=== PATIENT | female | born 1940 | race Caucasian/White ===

== ENCOUNTER → 2017-07-20 | Outpatient (CLI) | payer BC ==
[~2017-07-20] MED LIST: ACET325 PO; ALKA-SELTZER H1 EACH PO; ASPI325 PO; CARV3.125 PO; CHOL10002 PO; CYAN100 PO; CYCL10 PO; Colace100 MG PO; DULO30 PO; DULO60 PO; ESOM20 PO; FLUZONE HI180 MCG/04 IM; GABA100 PO; HYDACE5 PO; HYDR1TAB94 PO; Multiple Vitam1 EAC1 PO; NEXIUM PO; Norco 5-325 Ta1 EACH PO; ONDA4 PO; ONDA4ODT MM; OXYACE5T PO; OXYC1L PO; POTCHL10ER PO; PREG150 PO; PREG25 PO; PROM25S PO; Percocet 5-3251 EACH PO; QUIN5 PO; RANI150 PO; TRAM50 PO; Vitamin D400 UNI1 PO; Zofran Odt4 MG SL; Zofran8 MG PO
[2017-07-20 17:35] LABS: Bilirubin, Urine Neg (Neg); Blood, Urine Neg (Neg); Glucose Qualitative, Urine Neg (Neg); Ketones, Urine Neg (Neg); Leukocyte Esterase, Urine Neg (Neg); Nitrite, Urine Neg (Neg); Protein, Urine Neg (Neg); Urobilinogen, Urine NORM (Normal)
[2017-07-20 17:45] LABS: Appearance, Urine Clear (Clear); Color, Urine Yellow (P-Yellow)
== END | disposition home or self-care (01) ==
LOC: LAB 12:33
DX: R30.0 Dysuria (principal)
CPT/HCPCS: 81003

== ENCOUNTER 2017-12-01 12:38 | Emergency (ER) | payer BC ==
[~2017-12-01] VITALS: Ht 167.6 cm; Wt 74.8 kg
[~2017-12-01 12:38] MED LIST changes: -Colace100 MG PO; -POTCHL10ER PO
[2017-12-01] MEDS ORDERED: POTCHL10ER PO (13:20)
[2017-12-01 13:49] LABS: Source, Urine Clean Catch
[2017-12-01 14:05] LABS: Bilirubin, Urine Neg (Neg); Blood, Urine Neg (Neg); Glucose Qualitative, Urine Neg (Neg); Ketones, Urine Neg (Neg); Leukocyte Esterase, Urine 2+ (Neg); Nitrite, Urine Neg (Neg); Protein, Urine Neg (Neg); Specific Gravity, Urine 1.015 (1.003-1.022); Urobilinogen, Urine NORM (Normal); pH, Urine 6.5 (5.0-8.0)
[2017-12-01 14:14] LABS: Appearance, Urine Hazy (Clear); Color, Urine Yellow (P-Yellow)
[2017-12-01 14:18] LABS: Bacteria Few /hpf; Red Blood Cells, Urine Not Seen /hpf (0-2); Squamous Epithelial Cells Mod /hpf (Few)
[2017-12-01] MEDS ORDERED: Percocet 5-3251 EACH PO (17:12)
[2017-12-01] MEDS ORDERED: Colace100 MG PO (17:12)
== END 2017-12-01 17:25 | disposition home or self-care (01) ==
LOC: ER 12:38
PROVIDERS: Physician Assistant
DX: S32.059A Unspecified fracture of fifth lumbar vertebra, initial encounter for closed fracture (principal); X50.0XXA Overexertion from strenuous movement or load, initial encounter; Z88.5 Allergy status to narcotic agent; Z79.899 Other long term (current) drug therapy; K21.9 Gastro-esophageal reflux disease without esophagitis; I10 Essential (primary) hypertension; Z87.891 Personal history of nicotine dependence
CPT/HCPCS: 72100; 72148; 81001; 87086; 99284

== ENCOUNTER 2018-10-24 11:48 | Emergency (ER) | payer BC ==
[~2018-10-24] VITALS: Ht 142.2 cm; Wt 61.2 kg
[~2018-10-24 11:48] MED LIST changes: +Colace100 MG PO; +POTCHL10ER PO
[2018-10-24 13:21] LABS: Alanine Aminotransfer (ALT/SGP 18 U/L (12-78); Albumin, Blood 4.1 g/dL (3.4-5.0); Alk Phos 70 U/L (50-136); Anion Gap 7 mmol/L (6-16); Aspartate Aminotrans (AST/SGOT 17 U/L (12-37); Bilirubin, Total 0.7 mg/dL (0.1-1.0); Blood Urea Nitrogen 13 mg/dL (8-24); Bun/Creatinine Ratio 19.9 (12.0-20.0); CO2, Blood 28 mmol/L (21-32); Calcium, Blood 9.3 mg/dL (8.5-10.1); Chloride, Blood 102 mmol/L (98-108); Creatinine, Blood 0.65 mg/dL (0.40-1.00); Glomerular Filtration Rate >60 (60-); Glucose, Blood 103 mg/dL (70-99); Potassium, Blood 3.8 mmol/L (3.5-5.5); Sodium, Blood 137 mmol/L (136-145); Total Protein, Blood 8.1 g/dL (6.4-8.2)
[2018-10-24 14:23] LABS: BASOPHILS ABSOLUTE AUTO 0.03 K/mm3 (0.00-0.23); BASOPHILS PERCENT AUTO 0 % (0-2); EOSINOPHILS ABSOLUTE AUTO 0.02 K/mm3 (0.00-0.68); EOSINOPHILS PERCENT AUTO 0 % (0-6); Hematocrit 41.3 % (33.0-51.0); Hemoglobin 13.4 g/dL (11.5-16.0); IMMATURE GRAN ABSOLUTE AUTO 0.07 K/mm3 (0.00-0.10); IMMATURE GRAN PERCENT AUTO 1 % (0-1); LYMPHOCYTES ABSOLUTE AUTO 1.05 K/mm3 (0.84-5.20); LYMPHOCYTES PERCENT AUTO 12 % (21-46); MONOCYTES ABSOLUTE AUTO 0.55 K/mm3 (0.16-1.47); MONOCYTES PERCENT AUTO 6 % (4-13); Mean Corpuscular HGB 31.2 pg (26.0-34.0); Mean Corpuscular HGB Conc 32.4 g/dL (31.5-36.5); Mean Corpuscular Volume 96 fL (80-100); Mean Platelet Volume 9.9 fL (9.1-12.4); NEUTROPHILS ABSOLUTE AUTO 7.45 K/mm3 (1.96-9.15); NEUTROPHILS PERCENT AUTO 81 % (41-73); Platelet Count 265 K/mm3 (150-400); RDW Coefficient Variation 13.4 % (11.7-14.2); RDW Standard Deviation 48.1 fL (35.1-46.3); Red Blood Cell Count 4.29 M/mm3 (3.80-5.20); White Blood Cell Count 9.17 K/mm3 (4.00-11.30)
== END 2018-10-24 14:42 | disposition home or self-care (01) ==
LOC: ER 11:48
PROVIDERS: Physician Assistant
DX: S60.011A Contusion of right thumb without damage to nail, initial encounter (principal); R55 Syncope and collapse; I10 Essential (primary) hypertension; K21.9 Gastro-esophageal reflux disease without esophagitis; Z87.891 Personal history of nicotine dependence; X58.XXXA Exposure to other specified factors, initial encounter
CPT/HCPCS: 36415; 73130; 80053; 85025; 93005; 93010; 99284-25

== ENCOUNTER 2019-07-04 11:18 | Emergency (ER) | payer BC ==
[~2019-07-04] VITALS: Ht 147.3 cm; Wt 63.5 kg
[2019-07-04] MEDS ORDERED: Ativan0.5 MG PO (15:53)
== END 2019-07-04 16:21 | disposition home or self-care (01) ==
LOC: ER 11:18
DX: R51 Headache (principal); F43.9 Reaction to severe stress, unspecified; I10 Essential (primary) hypertension; K21.9 Gastro-esophageal reflux disease without esophagitis; Z88.5 Allergy status to narcotic agent; Z87.891 Personal history of nicotine dependence
CPT/HCPCS: 70450; 72125; 96372; 99284-25; J1200; J1885; J2765

== ENCOUNTER 2021-01-09 13:02 | Inpatient (IN) | payer MEDICARE, BC ==
[~2021-01-09] VITALS: Ht 157.5 cm; Wt 50.5 kg
[~2021-01-09 13:02] MED LIST changes: +Ativan0.5 MG PO
[2021-01-09 13:35] LABS: BASOPHILS ABSOLUTE AUTO 0.03 K/mm3 (0.00-0.23); BASOPHILS PERCENT AUTO 0 % (0-2); EOSINOPHILS PERCENT AUTO 0 % (0-6); Hematocrit 38.6 % (33.0-51.0); Hemoglobin 12.7 g/dL (11.5-16.0); IMMATURE GRAN ABSOLUTE AUTO 0.03 K/mm3 (0.00-0.10); IMMATURE GRAN PERCENT AUTO 0 % (0-1); LYMPHOCYTES PERCENT AUTO 10 % (21-46); MONOCYTES ABSOLUTE AUTO 0.66 K/mm3 (0.16-1.47); MONOCYTES PERCENT AUTO 7 % (4-13); Mean Corpuscular HGB 32.2 pg (26.0-34.0); Mean Corpuscular HGB Conc 32.9 g/dL (31.5-36.5); Mean Corpuscular Volume 98 fL (80-100); Mean Platelet Volume 9.5 fL (9.1-12.4); NEUTROPHILS ABSOLUTE AUTO 7.46 K/mm3 (1.96-9.15); NEUTROPHILS PERCENT AUTO 82 % (41-73); Platelet Count 263 K/mm3 (150-400); RDW Standard Deviation 46.7 fL (35.1-46.3); Red Blood Cell Count 3.95 M/mm3 (3.80-5.20); White Blood Cell Count 9.08 K/mm3 (4.00-11.30)
[2021-01-09 13:46] LABS: Alanine Aminotransfer (ALT/SGP 12 U/L (12-78); Albumin, Blood 3.4 g/dL (3.4-5.0); Albumin/Globulin Ratio 0.9 (0.8-1.8); Alk Phos 85 U/L (50-136); Anion Gap 3 mmol/L (6-16); Aspartate Aminotrans (AST/SGOT 14 U/L (12-37); Bilirubin, Total 0.3 mg/dL (0.1-1.0); Blood Urea Nitrogen 11 mg/dL (8-24); Bun/Creatinine Ratio 20.3 (12.0-20.0); CO2, Blood 29 mmol/L (21-32); Calcium, Blood 8.9 mg/dL (8.5-10.1); Chloride, Blood 104 mmol/L (98-108); Creatinine, Blood 0.54 mg/dL (0.40-1.00); Globulin, Blood 3.6 g/dL (2.2-4.0); Glomerular Filtration Rate >60 (60-); Glucose, Blood 130 mg/dL (70-99); Potassium, Blood 3.7 mmol/L (3.5-5.5); Sodium, Blood 136 mmol/L (136-145); Troponin I <0.015 ng/mL (0.000-0.040)
[2021-01-09 14:47] LABS: Magnesium, Blood 2.1 mg/dL (1.6-2.4); Phosphorus, Blood 2.8 mg/dL (2.5-4.9)
[2021-01-09] MEDS ORDERED: LORAZEPAM0.5 MG PO (16:29)
--- NOTE | 2021-01-09 20:00 | NUR ---
PT ADMITTED TO ROOM ICU 10 FROM [facility] [place] SECONDARY TO HAVING TRANSVENOUS PACER PLACEMENT. ACCESS RIGHT SIDE. PT TO ROOM AT 1915. PT VERY ANXIOUS AND CONFUSED. PT VERY [place]. PT'S HYPERTENSIVE AND HEART RATE TACHYCARDIA. DR CHAVEZ IN TO SEE PT. MEETS WITH PT'S DAUGHTER. IN DISCUSSION OF HAVING PACER PLACE SUB MUSCLE AND THAT EFFORTS TO FIND POSSIBLE HOSPITAL THAT IS ABLE TO PERFORM THIS PROCEDURE. WILL REVIEW CHART AND PLAN OF CARE FOR THIS PT.
[2021-01-09 21:47] LABS: Source, Urine Clean Catch
[2021-01-09 21:48] LABS: Troponin I 0.239 ng/mL (0.000-0.040)
[2021-01-09 21:52] LABS: Bilirubin, Urine Neg (Neg); Blood, Urine 1+ (Neg); Glucose Qualitative, Urine Neg (Neg); Ketones, Urine Neg (Neg); Leukocyte Esterase, Urine 1+ (Neg); Nitrite, Urine Neg (Neg); Protein, Urine Neg (Neg); Urobilinogen, Urine NORM (Normal)
[2021-01-09 22:09] LABS: Appearance, Urine Hazy (Clear); Color, Urine Yellow (P-Yellow)
[2021-01-09 22:10] LABS: Bacteria Many /hpf; Red Blood Cells, Urine 0-2 /hpf (0-2); Squamous Epithelial Cells Many /hpf (Few)
--- NOTE | 2021-01-09 23:00 | NUR ---
LEE CATHETER PLACED WITH TEMP PROBE FEATURE. UA SENT TO LAB. PT NEEDS TO BE REMINDED WHERE SHE IS AT THIS TIME. WILL ATTEMPT TO PULL AT LINES. TRANSVENOUS PACER HAS NOT BEEN IN USE SECONDARY TO HEART RATE REMAINING ABOVE THERSHOLD.
--- NOTE | 2021-01-10 02:00 | NUR ---
PT REQUIRED PLACEMENT OF [facility] SECONDARY TO CONSTANT ATTEMPTS TO GET OUT OF BED. PT DOES NOT REDIRECT. PT HAS MADE ATTEMPTS TO PULL AT CATHETER, LINES, AND TRANSVENOUS PACER LINE. DID OPT TO PLACE PT IN SOFT WRIST RESTRAINTS. THIS HAD BEEN DISCUSSED OPTION WITH DAUGHTER THAT HAS SINCE GONE HOME FOR THE NIGHT. PT WAS ABLE TO TAKE PO LISINOPRIL WITH WATER WITHOUT ISSUES. BLOOD PRESSURES IMPROVING.
[2021-01-10 04:04] LABS: SARS-Cov-2 (COVID-19) PCR, MMC NEGATIVE (NEGATIVE)
[2021-01-10 04:46] LABS: Hematocrit 38.9 % (33.0-51.0); Hemoglobin 12.8 g/dL (11.5-16.0); Mean Corpuscular HGB 31.4 pg (26.0-34.0); Mean Corpuscular HGB Conc 32.9 g/dL (31.5-36.5); Mean Corpuscular Volume 96 fL (80-100); Mean Platelet Volume 9.5 fL (9.1-12.4); Platelet Count 260 K/mm3 (150-400); RDW Standard Deviation 46.3 fL (35.1-46.3); Red Blood Cell Count 4.07 M/mm3 (3.80-5.20); White Blood Cell Count 11.26 K/mm3 (4.00-11.30)
[2021-01-10 05:28] LABS: Anion Gap 4 mmol/L (6-16); Blood Urea Nitrogen 9 mg/dL (8-24); Bun/Creatinine Ratio 14.2 (12.0-20.0); CO2, Blood 29 mmol/L (21-32); CPK Creatine Kinase 60 U/L (26-193); Calcium, Blood 8.9 mg/dL (8.5-10.1); Chloride, Blood 106 mmol/L (98-108); Creatinine, Blood 0.63 mg/dL (0.40-1.00); Glomerular Filtration Rate >60 (60-); Glucose, Blood 94 mg/dL (70-99); Magnesium, Blood 2.1 mg/dL (1.6-2.4); Phosphorus, Blood 3.3 mg/dL (2.5-4.9); Potassium, Blood 3.8 mmol/L (3.5-5.5); Sodium, Blood 139 mmol/L (136-145); Troponin I 0.137 ng/mL (0.000-0.040)
--- NOTE | 2021-01-10 06:30 | NUR ---
PT HAS BEEN ABLE TO SLEEP SOME THIS NIGHT THOUGH IS AWAKE AT THIS TIME. REMAINS WITH WRIST RESTRAINTS AND STILL MAKES ATTEMPTS TO GET AHOLD OF LINES. HAS HAD HEART RATE DROPS TO < 50 BMP THIS NIGHT WITH PACER CAPTURE AT 45 BPM. HAVE ALSO MADE USE OF REMOTE MONITORING WITH CAMERA USE TO SAFEGAURD PATIENT FROM DISLODGING ANY TUBES OR LINES. WILL CONTINUE TO MONITOR PT, AND WILL REPORT OFF TO ONCOMING RN.
--- NOTE | 2021-01-10 07:13 | NUR ---
Assumed care of this pt this morning. She is confused at baseline but is a/o to herslef. She needs constant redirection. Her temp pacer is in place and set at 45 and the plan is for her to have a permanant one placed this morning. The medical lab technologist has just arrived. IV fluids are running as ordered. The daughter is her primary caregiver and has gone home to sleep. Philippe is patent. Restraints are in place and she is visible on camera.
--- NOTE | 2021-01-10 08:41 | NUR ---
Heart center nurses just picked up the pt to go for her pacemaker placement. Pt was stable upon transport.
--- NOTE | 2021-01-10 11:10 | NUR ---
Pt returned from the heart center and she now has a pacemaker to the left chest. Dressing is CDI. Her heart rate is 60 and she is paced. O2 Sat is 96% on RA. She remains confused as that is her baseline. IV ABO are infusing per orders. IV lines have been covered with netting to try and prevent her from pulling them out. She is currently out of restraints but remains on camera. She has had some sips of water and is doing well with PO fluids. She is hypertensive but was given her morning dose of lisinopril. Her daughter was updated this morning. She is resting in bed asking for soup.
--- NOTE | 2021-01-10 12:14 | NUR ---
Echocardiogram complete
--- NOTE | 2021-01-10 17:27 | NUR ---
Shift Summary Pt is a/ox to self and situation at times but is very confused and needs a lot of redirection and cueing. This evening she is clearly sundowning and has been pulling at her lines and trying to get out of bed so we got her up to the chair and she is eating dinner. She has her sling in place and the pacer dressing is CDI but she needs constant reminders to keep her arm in the sling. ram is ptent with clear yellow urine output. Pt has a very good appetite and has been eating/drinking since she got back from the heart center. Her daughter stopped by for a couple of hours this afternoon and has some concerns about her dc tomorrow since they live in [facility] [place] and it is a long drive from their house to the hospital, all her quesions and concerns were addressed and she reported that she will be here to pick her up when her dc is complete. The pt is visible from the nurses station and has a tab alarm on for pt safety.
[2021-01-11 03:28] LABS: BASOPHILS ABSOLUTE AUTO 0.04 K/mm3 (0.00-0.23); BASOPHILS PERCENT AUTO 0 % (0-2); EOSINOPHILS ABSOLUTE AUTO 0.02 K/mm3 (0.00-0.68); EOSINOPHILS PERCENT AUTO 0 % (0-6); Hematocrit 38.4 % (33.0-51.0); Hemoglobin 12.7 g/dL (11.5-16.0); IMMATURE GRAN ABSOLUTE AUTO 0.05 K/mm3 (0.00-0.10); IMMATURE GRAN PERCENT AUTO 1 % (0-1); LYMPHOCYTES ABSOLUTE AUTO 1.77 K/mm3 (0.84-5.20); LYMPHOCYTES PERCENT AUTO 17 % (21-46); MONOCYTES ABSOLUTE AUTO 1.43 K/mm3 (0.16-1.47); MONOCYTES PERCENT AUTO 14 % (4-13); Mean Corpuscular HGB 31.8 pg (26.0-34.0); Mean Corpuscular HGB Conc 33.1 g/dL (31.5-36.5); Mean Corpuscular Volume 96 fL (80-100); Mean Platelet Volume 9.5 fL (9.1-12.4); NEUTROPHILS ABSOLUTE AUTO 7.24 K/mm3 (1.96-9.15); NEUTROPHILS PERCENT AUTO 69 % (41-73); Platelet Count 204 K/mm3 (150-400); RDW Coefficient Variation 13.1 % (11.7-14.2); RDW Standard Deviation 47.1 fL (35.1-46.3); White Blood Cell Count 10.55 K/mm3 (4.00-11.30)
[2021-01-11 03:48] LABS: Anion Gap 3 mmol/L (6-16); Blood Urea Nitrogen 14 mg/dL (8-24); Bun/Creatinine Ratio 20.6 (12.0-20.0); CO2, Blood 29 mmol/L (21-32); Calcium, Blood 8.9 mg/dL (8.5-10.1); Chloride, Blood 107 mmol/L (98-108); Creatinine, Blood 0.68 mg/dL (0.40-1.00); Glomerular Filtration Rate >60 (60-); Glucose, Blood 93 mg/dL (70-99); Potassium, Blood 4.3 mmol/L (3.5-5.5); Sodium, Blood 139 mmol/L (136-145)
--- NOTE | 2021-01-11 04:29 | NUR ---
SHIFT SUMMARY PATIENT IS ALERT AND ORIENTED TO SELF. FORGERFULL AND NEEDS REORIENTED CONSTANTLY. 02 SATS >95% ON RA. BP STABLE. PACED 60s-70s. LEFT SHOULDER DRESSING C/D/I, SLING IN PLACE, PT NEEDS CONSTANT REMINDERS TO NOT USE THAT ARM. VEST RESTRAINT IN USE TO KEEP PATIENT FROM GETTING OUT OF BED DUE TO HER HIGH FALL RISK. PT PULLS AT LINES AND CORDS, 1:1 SUPERVISION AT TIMES WHILE AWAKE. LEE DRAINING. VSS, NO ACUTE CHANGES. CALL LIGHT IN REACH.
--- NOTE | 2021-01-11 07:18 | NUR ---
Assumed care of this pt this morning. She is very anxious and attempting to climb out of bed and pull at her lines. She can be re-directed but only for a few seconds. She has towels to fold and is eating a pudding with water. She did complain of pain to her pacemaker site and tylenol was given as ordered. She remains in the bret vest. She is visible on the camera for safety.
[2021-01-11] MEDS ORDERED: CEPH500 PO (10:18)
[2021-01-11] MEDS ORDERED: LISI20 PO (10:19)
--- NOTE | 2021-01-11 11:25 | NUR ---
Care summary Pt has been a/o at baseline and pain to the pacemaker site was releived with tyleonl as ordered. After breakfast she calmed down and was easier to direct. The restraints were taken off and she was assisted up to the recliner chair. Paez was removed with no issues. She was entertained with folding towels. Dr Jaramillo came and changed her pacemaker dressing and it is still intact. All the DC instructions and meds were reviewed with the daughter, who is her primary caregiver. IVs were removed with no issue. Her sling is in place but she needs constant reminders to not use that left arm. She continues to have a good appetite. Daughter has the info on the wound check and device follow ups. Rxs were faxed to pharmacy on file. The daughter has all of her personal belogings and she is being assisted out to the car to DC home with her daughter.
== END 2021-01-11 11:30 | disposition home or self-care (01) | DRG 244 ==
LOC: ER 13:02 → ERHOLD 16:16 → ICUW 16:16
PROVIDERS: Emergency Medicine; Internal Medicine; Internal Medicine Cardiovascular Disease; Student in an Organized Health Care Education/Training Program; ADMIT Internal Medicine
PROC: 5A1223Z Performance of Cardiac Pacing, Continuous (ICD-10-PCS; 2021-01-09)
PROC: 0JH606Z Insertion of Pacemaker, Dual Chamber into Chest Subcutaneous Tissue and Fascia, Open Approach (ICD-10-PCS; principal; 2021-01-10)
PROC: 02H63JZ Insertion of Pacemaker Lead into Right Atrium, Percutaneous Approach (ICD-10-PCS; 2021-01-10)
PROC: 02HK3JZ Insertion of Pacemaker Lead into Right Ventricle, Percutaneous Approach (ICD-10-PCS; 2021-01-10)
DX: I49.5 Sick sinus syndrome (principal); F03.90 Unspecified dementia, unspecified severity, without behavioral disturbance, psychotic disturbance, mood disturbance, and anxiety; M19.90 Unspecified osteoarthritis, unspecified site; Z20.822 Contact with and (suspected) exposure to COVID-19; Z88.5 Allergy status to narcotic agent; F41.9 Anxiety disorder, unspecified; I10 Essential (primary) hypertension; M79.7 Fibromyalgia; K21.9 Gastro-esophageal reflux disease without esophagitis; D50.9 Iron deficiency anemia, unspecified; Z98.890 Other specified postprocedural states; Z98.84 Bariatric surgery status; Z79.899 Other long term (current) drug therapy; I95.9 Hypotension, unspecified
CPT/HCPCS: 33208; 33210; 36415; 51703; 71045; 76937; 80048; 80053; 81001; 82550; 83735; 84100; 84439; 84443; 84484; 85025; 85027; 87086; 93005; 93010; 93306; 96374; 99152; 99153; 99285-25; A9270; C1769; C1785; C1894; C1898; J0360; J0461; J0690; J1580; J1644; J2060; J2250; J2405; J3010; J7040; Q9967; U0004

== ENCOUNTER 2021-07-06 14:09 | Emergency (ER) | payer BC ==
[~2021-07-06] VITALS: Ht 160 cm; Wt 45.4 kg
[~2021-07-06 14:09] MED LIST changes: +CEPH500 PO; +LISI20 PO; +LORAZEPAM0.5 MG PO
[2021-07-06 15:01] LABS: BASOPHILS ABSOLUTE AUTO 0.05 K/mm3 (0.00-0.23); BASOPHILS PERCENT AUTO 1 % (0-2); EOSINOPHILS ABSOLUTE AUTO 0.03 K/mm3 (0.00-0.68); EOSINOPHILS PERCENT AUTO 0 % (0-6); Hematocrit 39.8 % (33.0-51.0); Hemoglobin 13.2 g/dL (11.5-16.0); IMMATURE GRAN ABSOLUTE AUTO 0.02 K/mm3 (0.00-0.10); IMMATURE GRAN PERCENT AUTO 0 % (0-1); LYMPHOCYTES ABSOLUTE AUTO 1.22 K/mm3 (0.84-5.20); LYMPHOCYTES PERCENT AUTO 18 % (21-46); MONOCYTES ABSOLUTE AUTO 0.71 K/mm3 (0.16-1.47); MONOCYTES PERCENT AUTO 11 % (4-13); Mean Corpuscular HGB 30.8 pg (26.0-34.0); Mean Corpuscular HGB Conc 33.2 g/dL (31.5-36.5); Mean Corpuscular Volume 93 fL (80-100); Mean Platelet Volume 9.4 fL (9.1-12.4); NEUTROPHILS PERCENT AUTO 70 % (41-73); Platelet Count 334 K/mm3 (150-400); RDW Coefficient Variation 13.8 % (11.7-14.2); RDW Standard Deviation 46.4 fL (35.1-46.3); Red Blood Cell Count 4.29 M/mm3 (3.80-5.20); White Blood Cell Count 6.73 K/mm3 (4.00-11.30)
[2021-07-06 15:16] LABS: International Normalized Ratio 1.09; Prothrombin Time Results 11.4 Sec (9.7-11.5)
[2021-07-06 15:21] LABS: Alanine Aminotransfer (ALT/SGP 15 U/L (12-78); Albumin, Blood 3.3 g/dL (3.4-5.0); Albumin/Globulin Ratio 0.8 (0.8-1.8); Alk Phos 84 U/L (50-136); Anion Gap 7 mmol/L (6-16); Aspartate Aminotrans (AST/SGOT 16 U/L (12-37); Bilirubin, Total 0.6 mg/dL (0.1-1.0); Blood Urea Nitrogen 12 mg/dL (8-24); Bun/Creatinine Ratio 19.8 (12.0-20.0); CO2, Blood 35 mmol/L (21-32); Calcium, Blood 9.8 mg/dL (8.5-10.1); Chloride, Blood 97 mmol/L (98-108); Creatinine, Blood 0.61 mg/dL (0.40-1.00); Globulin, Blood 4.1 g/dL (2.2-4.0); Glomerular Filtration Rate >60 (60-); Glucose, Blood 100 mg/dL (70-99); Potassium, Blood 2.3 mmol/L (3.5-5.5); Sodium, Blood 139 mmol/L (136-145); Total Protein, Blood 7.4 g/dL (6.4-8.2)
[2021-07-06 15:36] LABS: Source, Urine Catheter
[2021-07-06 15:39] LABS: Appearance, Urine Clear (Clear); Bilirubin, Urine Neg (Neg); Blood, Urine Neg (Neg); Color, Urine Yellow (P-Yellow); Glucose Qualitative, Urine Neg (Neg); Ketones, Urine 2+ (Neg); Leukocyte Esterase, Urine Neg (Neg); Nitrite, Urine Neg (Neg); Protein, Urine Neg (Neg); Specific Gravity, Urine 1.015 (1.003-1.022); Urobilinogen, Urine NORM (Normal)
[2021-07-06] MEDS ORDERED: PANT20 PO (16:46)
[2021-07-06] MEDS ORDERED: ONDA4ODT MM (16:46)
[2021-07-06] MEDS ORDERED: K-TAB ER20 MEQ PO (16:46)
== END 2021-07-06 19:25 | disposition home or self-care (01) ==
LOC: ER 14:09
PROVIDERS: Emergency Medicine
DX: E87.6 Hypokalemia (principal); R11.10 Vomiting, unspecified; Z88.5 Allergy status to narcotic agent; Z79.899 Other long term (current) drug therapy; K21.9 Gastro-esophageal reflux disease without esophagitis; I10 Essential (primary) hypertension
CPT/HCPCS: 36415; 74177; 80053; 81003; 85025; 85610; 93005; 93010; 96365; 96366; 96375; 99285-25; A9270; C9113; J3480; P9612; Q9967